=== PATIENT | female | born 1960 | race African-American/Black ===

== ENCOUNTER 2021-04-18 12:15 | Inpatient (IN) | payer OTHER ==
[~2021-04-18] VITALS: Ht 172.7 cm; Wt 77.7 kg
[2021-04-18 12:26] VITALS: BP 140/79
[2021-04-18] MEDS ORDERED: METFORMIN HCL500 M3 PO (15:34)
[2021-04-18] MEDS ORDERED: OXYBUTYNIN 5 MG5 M2 PO (15:35)
[2021-04-18] MEDS ORDERED: SIMVASTATIN40 MG PO (15:35)
[2021-04-18] MEDS ORDERED: VITAMIN D325 MC3 PO (15:36)
[2021-04-18] MEDS ORDERED: OMEPRAZOLE 20 M20 M1 PO (15:36)
[2021-04-18] MEDS ORDERED: JANUVIA100 MG PO (15:36)
[2021-04-18 15:42] LABS: HEMATOCRIT 38.8 % (37.0-47.0); HEMOGLOBIN 12.7 gm/dL (12.0-15.0); MCH 28.8 pg (26.0-34.0); MCHC 32.8 g/dL (28.0-37.0); MCV 87.8 fL (80.0-100.0); RBC 4.42 mil/uL (4.20-5.00); RDW 14.1 % (10.5-14.5); WBC 10.5 thou/uL (4.0-11.0)
[2021-04-18 15:52] LABS: CALCIUM 9.4 mg/dL (8.5-10.1); CREATININE 1.1 mg/dL (0.6-1.0); POTASSIUM 4.2 mmol/L (3.5-5.1)
[2021-04-18 16:00] LABS: ALBUMIN 3.9 g/dL (3.4-5.0); TOTAL BILIRUBIN 0.4 mg/dL (0.2-1.0); TOTAL PROTEIN 7.5 g/dL (6.4-8.2)
[2021-04-18 19:13] VITALS: BP 154/72
[2021-04-18 19:20] VITALS: BP 154/72
[2021-04-18 19:39] VITALS: BP 141/65
[2021-04-19] VITALS (8 sets, daily range): BP systolic 143–163; BP diastolic 64–91
--- NOTE | 2021-04-19 00:33 | NUR ---
PT WAS ADMITTED TO THE FLOOR FROM THE ER IN A STABLE CONDITION.ADMISSION HX,EDUCATION AND ASSESSMENT COMPLETED.PT HAS R KNEE ABRAISION AND L LEG IMMOBILIZER IN PLACE.L KNEE SWOLLEN,THREE BAGS OF ICE BAGS ON HER L LEG TO AID WITH THE SWELLING.PT NPO AT THIS TIME FOR A POSSIBLE SURGERY LATER IN THE DAY.PT SLEEPING ON HER BED AT THIS TIME.CALL LIGHT WITHIN REACH.
--- NOTE | 2021-04-19 09:19 | NUR ---
Assumed care of pt at 0700. Pt a&ox4. C/o LLE pain. Patient taken to surgery this am. Immobilizer in place. Family sent to surgery waiting room.
--- NOTE | 2021-04-19 12:19 | EKG ---
[address] [place] [address] ELECTROCARDIOGRAM REPORT Name: DEDRA KERR Room #: 435-P ADM IN M.R.#: [id number] Admission: 04/18/21 Attend Phys: Keyla Kelly Discharge: Date of : 56 Report #: [id number] [facility] ED Test Date: 2021-04-18 Test Time: 17:10:12 Pat Name: DEDRA KERR Department: Room: 435 Gender: F [employer] Attendant: at : 1960 Requested By: Cira Caceres Order Number: [id number] MD: Edmundo Lucero Measurements Intervals [place] Rate: 65 P: 67 [place]: 173 QRS: 57 QRSD: 97 T: 64 QT: 412 QTc: 429 Interpretive Statements Sinus rhythm Atrial premature complex Minimal ST elevation, inferior leads No previous ECG available for comparison Electronically Signed On 04-19-2021 12:19:00 CDT by Edmundo Lucero [email or web address] <ELECTRONICALLY SIGNED> By: Edmundo Lucero MD 04/19/21 1219 1710 1710 Edmundo Lucero MD /ELMER
--- NOTE | 2021-04-19 18:40 | O ---
[address] [address] OPERATIVE REPORT Name: DEDRA KERR Room #: 435-P ADM IN M.R.#: [id number] Admission: 04/18/21 Attend Phys: Keyla Kelly Discharge: Date of : 56 Report #: [id number] THIS REPORT FOR: cc: Ashley Morgan MD, Karla L. MD McCabe,Mick Ingram MD ~ DATE OF SERVICE: 04/19/2021 SERVICE: Orthopedics. FACILITY: [facility]. SURGEON: Mick Mcneal MD ENVIRONMENTAL AIDE: Jazmine Mead NP INDICATIONS FOR ENVIRONMENTAL AIDE: Retraction and exposure, assistance with provisional and definitive reduction and wound closure. PREOPERATIVE DIAGNOSES: 1. Status post fall. 2. Displaced bicondylar tibial plateau fracture. 3. Diabetes. POSTOPERATIVE DIAGNOSES: 1. Status post fall. 2. Displaced bicondylar tibial plateau fracture. 3. Diabetes. PROCEDURE PERFORMED: Open reduction and internal fixation, left bicondylar tibial plateau fracture with fixation of medial and lateral condyles. COMPLICATIONS: None. DRAINS: None. SPECIMENS: None. ESTIMATED BLOOD LOSS: 20 mL. FINDINGS: 1. Synthes lateral and medial tibial plateau plates. 2. Adequate reduction on multiple plain x-rays after fixation. HISTORY: The patient is a 60-year-old female who fell coming out of the eye doctor's office yesterday and sustained a tibial plateau fracture. She [address] [address] OPERATIVE REPORT Name: DEDRA KERR Room #: 435-P ADM IN M.R.#: [id number] Admission: 04/18/21 Attend Phys: Keyla Shultz Leticia Discharge: Date of : 56 Report #: [id number] presented to the [facility] Emergency Room where she was noted to have an unstable injury and was indicated for definitive surgical treatment. CT scan was obtained, which showed significant articular comminution and she was indicated for surgical treatment. Risks, benefits, alternatives and indications for surgery discussed with her in detail. Risks included but not limited to pain, bleeding, infection, injury to nerves or blood vessels, persistent pain despite surgical intervention, failure of any repairs, progression of any preexisting chondral injury, arthritis, need for further surgery including hardware removal and revision to arthroplasty as well as complications related to anesthesia. Despite the risks, she wished to proceed. DESCRIPTION OF PROCEDURE: After left lower extremity was correctly identified in the preoperative holding area as the operative extremity, the patient was taken to the operating room where general anesthesia was induced without complications. She was padded appropriately. Prophylactic antibiotics were administered in appropriate time. Left lower extremity was then prepped and draped in standard sterile fashion. Timeout procedure performed. Esmarch was used and tourniquet was inflated to 300 mmHg. Total tourniquet time was 115 minutes. Standard lateral approach was made to the knee with a hockey stick type incision based over Gerdy's tubercle. Dissection was taken down to the tibia and then subperiosteal dissection was performed, reflecting the anterior compartment off of the anterolateral aspect of the tibia. The dissection was taken proximally to the level of the joint line and then a sharp blade was used to incise the capsule underneath the body of the lateral meniscus. Tagging stitches were placed in the meniscus and it was lifted up to allow visualization of the articular surface. The lateral condyle did not have a blowout posteriorly or laterally. There was comminution anteriorly that did exit at the anterolateral aspect of the lateral condyle and the articular fracture of the lateral tibial plateau was maintained in anatomic position. The joint was irrigated. We assessed the reduction. At this point, the second incision was made. We performed the exposure and initialed medial reduction at this time. Medial approach was made to the knee. Full thickness skin flaps were developed. Care was taken to protect neurovascular structures. The medial tibia was exposed. The hamstring tendons were protected as was the medial collateral ligament. There was some impaction at the fracture and so the primary reduction maneuver required mobilization of the posterior medial cortical spike and advancement of the fragment proximally and translation of the shaft distally. The fracture was irrigated and was debrided of soft tissue and then this eventually allowed for adequate mobilization and then a cortical contact could be achieved on the posteromedial tibial cortex. It was held, provisionally reduced manually and then a medial plate was selected and placed on the tibia. This was provisionally pinned and then we brought in x-ray to assess the reduction and there was some displacement and so the decision was made to use the plate as a reducing force vector to [address] [address] OPERATIVE REPORT Name: DEDRA KERR Room #: 435-P [facility] IN M.R.#: [id number] Admission: 04/18/21 Attend Phys: Keyla Kelly Discharge: Date of : 56 Report #: [id number] close the condyles down and address the medial collapse. Total of 5 K-wires were placed in the subchondral portion of the medial tibial plateau and then a nonlocking screw was used to compress the plate to the shaft distally on the medial side and the plate was used as a reduction tool in this fashion. At this point, x-ray was brought in and the reduction appeared to be anatomic with good alignment of the tibia and so the proximal locking screws were placed with care taken to ensure the screws achieved purchase in the lateral condyles, so cancellous bone to compress at the fracture. The second nonlocking screw was placed in the shaft distally and then the kickstand screw was placed as well x 2. Final x-rays were taken after the medial fixation was completed and the wound was irrigated. We returned to the lateral side and the plan was for the lateral fixation to serve as a neutralization fixation to reinforce the medial-sided fixation and also to help provide subchondral support for the comminution that was at the level of the joint. In a similar fashion we applied the plate with provisional fixation proximally with the K-wires and then placed a kickstand screw initially, but the plate still set off the bone distally and felt there would be some benefit to reducing the plate down to the bone to help compress the plate and provide a vector force to resist varus collapse. The plate was then advanced down to the bone after the kickstand screw was loosened and then this was advanced and secured with the locking threaded into the plate. Final subchondral screws were placed as well. The wound was irrigated. Final x-rays were taken. The knee was in anatomic alignment. The deep layer was closed with 0 Vicryl suture. The medial meniscus, which also had tagging sutures placed in it and a transverse submeniscal arthrotomy had been performed. This also allowed for elevation of the meniscus and visualization of the articular surface to ensure that there was an anatomic reduction and there were no residual step-offs prior to taking the final reduction and placing the final hardware. The submeniscal arthrotomy was repaired with 0 Vicryl sutures to the capsular tissue distally on the medial tibia. The lateral side submeniscal arthrotomy was repaired as well with the Ethibond suture passed through 2 holes in the plate and then 0 Vicryl used to repair the soft tissues over the top. The wounds were irrigated again and then the skin layer was closed over a gram of vancomycin powder split between the two wounds including some placed deep to the lateral compartment musculature over the plate prior to closure of the compartment. The skin was closed with 2-0 Vicryl, followed by skin kathie. Sterile dressing was applied. The patient was placed in a compression stocking followed by knee immobilizer and she was given a Polar Care. [facility] [address] [place] [address] OPERATIVE REPORT Name: CIRILODEDRA ECHO Room #: 435-P [facility] IN .R.#: [id number] Admission: 04/18/21 Attend Phys: Keyla Kelly Discharge: Date of : 56 Report #: [id number] POSTOPERATIVE PLAN: Will be nonweightbearing for 3 months. She will be allowed an early active and passive range of motion starting postoperative day 1. <ELECTRONICALLY SIGNED> By: Mick Mcneal MD 04/19/21 1840 1243 1359 Mick Mcneal MD /nt
--- NOTE | 2021-04-20 00:54 | NUR ---
PT ON CPM MACHINE AT START OF SHIFT.PT C/O PAIN TO HER L KNEE, MANAGED WITH MED.EXTRENAL FEMALE CATH IN PACE PER PT'S REPORT. DRSG TO HER L KNEE C/D/I.PPLAR PACK,SCD AND MIGUEL IN PLACE.PT SLEEPING ON HER BED AT THIS TIME.CALL LIGHT WITHIN REACH.
[2021-04-20 04:53] LABS: HEMATOCRIT 32.9 % (37.0-47.0); HEMOGLOBIN 10.8 gm/dL (12.0-15.0); MCH 28.8 pg (26.0-34.0); MCHC 32.8 g/dL (28.0-37.0); MCV 87.8 fL (80.0-100.0); RBC 3.75 mil/uL (4.20-5.00); RDW 13.9 % (10.5-14.5); WBC 7.7 thou/uL (4.0-11.0)
--- NOTE | 2021-04-20 10:13 | NUR ---
ASSUMED PT CARE THIS AM. PT IS ALERT & ORIENTED X4. PT HAS IV SITE ON L AC RUNNING D5 1/2 NS @ 100ML/HR. PT IS UP WITH ASSIST X1 WITH WALKER AND GAITBELT. PT HAS PUREWICK ON AND ON ROOM AIR. PLACED CONTINUOUS PASSIVE M0TION MACHINE ON L LEG THIS AM. PT HAS POLAR CARE. PT IS ACCUCHECK ACHS. PT TOLERATED MEDICATION AND DIET WELL. NO C/O OF NAUSEA AND VOMITING THIS AM. WILL CONTINUE TO MONITOR PT. FOLLOW POC.
[2021-04-20 15:47] VITALS: BP 154/72
[2021-04-20 20:07] VITALS: BP 157/64
--- NOTE | 2021-04-21 02:49 | NUR ---
PT IS A/O X4 AND IS UP WITH ASSISTANCE TO THE [facility]SC USING WALKER AND GB. PT IS ON ROOM AIR. VSS. AFEBRILE. C/O PAIN AT A LEVEL 5/10 BUT DOES NOT WISH TO HAVE ANY MEDICATION FOR PAIN. VOIDS PER BSC AND AT NOC WISHES TO HAVE AN FEMALE EXTERNAL CATHETER IN PLACE. NO BM THIS SHIFT. PT IS PLEASANT AND COOPERATIVE WITH ALL CARES. MEDICATION GIVEN PER NOV. CHRISTOPHER DRSGS TO LEFT LEG ARE C/D/I WITH SMALL AMOUNT OF DRIED BLOODY DRAINAGE NOTED. FALL PRECAUTIONS IN PLACE, CALL LIGHT IS WITHIN REACH. PT CALLS OUT APPROPRIATELY FOR ASSISTANCE. MIGUEL JARVIS,SCD'S IN PLACE.
[2021-04-21 07:44] VITALS: BP 140/65
[2021-04-21] MEDS ORDERED: PERCOCET PO (09:10)
[2021-04-21] MEDS ORDERED: XARELTO10 MG PO (09:10)
[2021-04-21] MEDS ORDERED: MIRALAX17 GM PO (09:10)
--- NOTE | 2021-04-21 11:02 | NUR ---
ASSUMED CARE OF PT XFERRED FROM ER. PT HAD FALLEN 3 DAYS AGO AND STARTED HURTING WORSE. PT DX WITH MULTIPLE AGED FX TO THE LOWER VERT. AND A UTI. PT IS A/OX4, SKIN INTACT WITH NO TENTING. LUNGS CLEAR IN ALL MATTA, DISTAL PULSES STRONG PRESENT X4. ASSESSMENT CHARTED AND OTHERWISE UNREMARKABLE. IV IN RT HAND WITH NS AT 75ML/HR AND ABX. CALL LIGHT AND OTHER NEEDS ARE WITHIN REACH. FALL PRECAUTIONS ARE IN PLACE. MEDS AND TX GIVEN NEEDED AND SCHEDULED. WILL MONITOR AND NOTE ANY CHANGES.
--- NOTE | 2021-04-21 12:31 | NUR ---
ASSESSMENT: CM REVIEWED CHART AND SPOKE WITH PATIENT. PT IS ALERT AND ORIENTED X4. PT WAS ADMITTED DUE TO TIBIAL FX. PT IS POST OP AND IS NWB AND IS TO HAVE CPM DAILY. PT REPORTS THAT SHE LIVES IN A HOUSE WITH GREAT NEPHEW AND HAS ABOUT 2 STEPS TO ENTER THE HOME. PT REPORTS NO STEPS ONCE INSIDE. PHYSICAL THERAPY HAS BEEN WORKING WITH PATIENT AND PHYSICIAN RECOMMENDING SNF. CM DISCUSSED WITH PATIENT AND SHE IS AGREEABLE. PT WANTED REFERRALS SENT TO [facility] AND [facility]. CM FAXED REFERRALS AND AWAITING INPUT AT THIS TIME. PT HAS NOT HAD A PREVIOUS POST ACUTE CARE STAY. CM WILL CONTINUE TO FOLLOW TO ASSIST NEEDED.
--- NOTE | 2021-04-21 15:05 | NUR ---
ASSUMED CARE OF PT AT 0700 THIS MORNING. PT HAS HAD REPAIR TO [facility] ON 04/19 PICOX2 ON RT LOWER LEG. DIABETIC WITH ACCUCHECK AC&HS. PT IS WORKING WITH [facility] AND IS HOPING TO BE DISCHARGED TODAY OR TOMORROW. SKIN INTACT WITH NO TENTING EXCEPT DRESSINGSX2 ON RT LOWER LEG. POLAR PK, TEDX2, SCD IN PLACE. NONWT BEARING AND ONLY PASSIVE ROTATION AT THIS TIME. IV IN LT AC WITH NS AT 75ML/HR. ASSESSMENTS CHARTED AND OTHERWISE UNREMARKABLE. CALL LIGHT AND OTHER NEEDS ARE WITHIN REACH. MEDS AND TX GIVEN NEEDED AND SCHEDULED. WILL CONT MONITORING AND NOTE ANY CHANGES.
--- NOTE | 2021-04-21 17:07 | NUR ---
THIS RN AGREES WITH THE FURNACE AND WASH EQUIPMENT OPERATOR ASSESSMENT.
[2021-04-21 19:11] VITALS: BP 144/72
--- NOTE | 2021-04-22 02:34 | NUR ---
PT REF HER INSULIN AT HS,PT STATED THAT SHE JUST GOT SOME FROM AM NURSE.PT REQUESTING FOR HER METFORMIN TO BE RESTARTED,GAS FURNACE INSTALLER ON DUTY NOTIFIED,WILL LOOK INTO IT.PT DENIED PAIN SO FAR.EXT FEMALE CATH IN PLACE WITH GOOD URINE OUTPUT.PT SLEEPING ON HER BED AT THIS TIME.CALL LIGHT WITHIN REACH.
[2021-04-22 03:59] VITALS: BP 145/70
[2021-04-22 08:00] VITALS: BP 121/71
--- NOTE | 2021-04-22 10:20 | NUR ---
Assumed care of pt at 0700. Pt a&o4. Pain controlled. NWB. CPM machine 4 hours/day. Afebrile this am. Dressing c/d/i. MIGUEL hose and SCDs in place. Pt will discharge to SNF in the afternoon. Call light within reach. Fall precautions in place. Will continue to monitor.
--- NOTE | 2021-04-22 11:11 | NUR ---
ON-GOING ASSESSMENT: CM REVIEWED CHART AND SPOKE WITH BEDSIDE RN. BEDSIDE RN STATING HE WAS HERE WHEN PATIENT HAD HER SURGERY SATRUDAY AND HAS A RECEIPT FOR CPM MACHINE. CM RECEIVED RECEIPT AND CARD FOR CONTACT ART AT [facility] [place] CELL:[phone] FAX: [phone]. CM CONTACTED THIS REP ART AND HE REPORTS THAT HE DELIVERED THE CPM MACHINE TO PATIENT AND THAT IF PATIENT GOES TO A SNF THEN THE SNF HAS TO USE THEIR OWN MACHINE OR GET ONE THROUGH A THIRD DEMOCRAT. HE STATES THAT THEY CAN USE THIS MACHINE BUT THE SNF WILL NEED TO CONTACT THEM THE SNF WILL GET CHARGED 10 DOLLARS/DAY FOR CPM MACHINE WHILE SHE IS THERE. CM NOTIFIED LIASON AT [facility] TO CONTACT THE REP. [facility] IS GOING TO USE THIS VENDOR AND THIS MACHINE WHILE AT [facility]. CM FORWARD ALL OF THE CONTACT INFO FOR THIS REP TO [facility]. PT CAN DISCHARGE TODAY TO [facility] WHO REPORTS HAVING AUTH TO ACCEPT WELL. CM FAXED DISCHARGE PAPERWORK TO [facility] AND CONFIRMED THEY RECEIVED IT. CHART COPY WAS ORDERED. TRANSPORTATION HAS BEEN ARRANGED FOR 1330. BEDSIDE RN AND PATIENT ARE AWARE. PT IS AGREEABLE WITH THE PLAN. PT AND BEDSIDE RN AWARE THAT CPM MACHINE WILL NEED TO ACCOMPANY PATIENT TO SNF. PT REPORTS SHE HAS UPDATED HER FAMILY. CASE CLOSED.
== END 2021-04-22 13:54 | DRG 493 ==
LOC: ER 12:15 → EROBS 19:00 → 4S 19:00
PROVIDERS: Nurse Practitioner Family; ADMIT Hospitalist; ATTEND Hospitalist
PROC: 2W3RXYZ Immobilization of Left Lower Leg using Other Device (ICD-10-PCS; principal; 2021-04-18)
PROC: 0QSH04Z Reposition Left Tibia with Internal Fixation Device, Open Approach (ICD-10-PCS; 2021-04-19)
DX: S82.142A Displaced bicondylar fracture of left tibia, initial encounter for closed fracture (principal); D62 Acute posthemorrhagic anemia; E78.5 Hyperlipidemia, unspecified; E11.9 Type 2 diabetes mellitus without complications; K21.9 Gastro-esophageal reflux disease without esophagitis; W18.39XA Other fall on same level, initial encounter; Z20.822 Contact with and (suspected) exposure to COVID-19; Y93.89 Activity, other specified; Y92.89 Other specified places as the place of occurrence of the external cause; Y99.8 Other external cause status; Z79.899 Other long term (current) drug therapy; Z79.84 Long term (current) use of oral hypoglycemic drugs
CPT/HCPCS: 10195; 50101; 50341; 50415; 50567; 51320; 51412; 52258; 53337; 56524; 56528; 56667; 57180; 58410; 58411; 58953; 58954; 58955; 62110; 62900; 70005